=== PATIENT | male | born 1960 | race Two or more races ===

== ENCOUNTER 2018-04-20 09:30 | Outpatient (AMBR) | payer MEDICAID, SELFPAY ==
--- NOTE | 2018-04-03 09:40 | PT.OIERPT ---
PT OP Initial Eval Patient Information Pediatric or Adult Patient: Adult PT >13 Visit Reasons: Cerebrovascular accident Medical Diagnosis: ICD 10 Cerebral infarction Treatment Dx #1: Muscle weakness Treatment Dx #2: unsteady gait Initial Assessment Subjective 57 y/o male who was hospitalized on 01/2018 due to initial complain of shakiness and anxiety. MRI was done and the results are No brainstem infarct is confirmed. No acute infarct. No significant chronic microvascular white matter change. No abnormal enhancing cerebellar or cerebral lesion. Mild intracranial arterial irregularity, no vascular occlusion or cerebral aneurysm No significant carotid stenosis. Dr. Hill was consulted and as per Dr. Hill that he will need further work up for his LLE pain and low back pain. 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 Patient currently is on Sinemet for his Parkinson Dse. Patient at the time of PT evaluation complains of low back pain. He mentioned that he cannot walk normal now and that he needs to walk slow or else he fall, and that his balance is not good. Patient Does have a cane but he doesn't use it. 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 Objective Patient BLE ms strength =4/5 grossly graded BUE ms strength 4/5 grossly graded TUG test 15.86 secs Tinetti balance 16, gait 12/30 total score = 20/28 = moderate risk for falls gait assessment = Decrease theron. Decrease hip flexion and knee flexion with decrease toe clearance. Decrease weight shifting. Standing dynamic balance = fair No visible resting tremor at the time of evaluation Patient has pain on the RLE PS5/10 at the time of evaluation at worst it is PS 8/10 Assessment Patient will need PT for strengthening ex on BUE and BLE, balance ex to decrease risk of falls, Gait training with and without AD, ambulation on even and uneven surfaces. And to be I with HEP to be able to maintain the level of function upon dc. Patient were educated about his low back and that as per MD that he will need further test for his low back pain with radiculopathy and that after this therapy session he could request a referral for his back problem. Patient verbalized understanding. Short Term and Hem Marker Goals 1. Increase ms strength on BUE/BLE to 5/5 to facilitate transfers and amb 2. To increase balance to good to decrease risk of falls and increase TUG score to 12secs 3. To eliminate gait deviations to promote increase toe clearance to decrease risk of falls. 4. To be I with HEP Treatment Plan Thera ex [facility]-ed Gait training Frequency and Duration 2x/wk x 6 weeks Certification Dates: 04/03/18 to 07/02/2018 CVA/TIA Most Recent Cardiac Tests: No Data to Display
--- NOTE | 2018-04-03 10:09 | PTNOTE_ITS ---
PT OP Initial Eval Patient Information Pediatric or Adult Patient: Adult PT >13 Visit Reasons: Cerebrovascular accident Medical Diagnosis: ICD 10 Cerebral infarction Treatment Dx #1: Muscle weakness Treatment Dx #2: unsteady gait Initial Assessment Subjective 57 y/o male who was hospitalized on 01/2018 due to initial complain of shakiness and anxiety. MRI was done and the results are No brainstem infarct is confirmed. No acute infarct. No significant chronic microvascular white matter change. No abnormal enhancing cerebellar or cerebral lesion. Mild intracranial arterial irregularity, no vascular occlusion or cerebral aneurysm No significant carotid stenosis. Dr. Hill was consulted and as per Dr. Hill that he will need further work up for his LLE pain and low back pain. 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 Patient currently is on Sinemet for his Parkinson Dse. Patient at the time of PT evaluation complains of low back pain. He mentioned that he cannot walk normal now and that he needs to walk slow or else he fall, and that his balance is not good. Patient Does have a cane but he doesn't use it. 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 Objective Patient BLE ms strength =4/5 grossly graded BUE ms strength 4/5 grossly graded TUG test 15.86 secs Tinetti balance 16, gait 12/30 total score = 20/28 = moderate risk for falls gait assessment = Decrease theron. Decrease hip flexion and knee flexion with decrease toe clearance. Decrease weight shifting. Standing dynamic balance = fair No visible resting tremor at the time of evaluation Patient has pain on the RLE PS5/10 at the time of evaluation at worst it is PS 8 /10 Assessment Patient will need PT for strengthening ex on BUE and BLE, balance ex to decrease risk of falls, Gait training with and without AD, ambulation on even and uneven surfaces. And to be I with HEP to be able to maintain the level of function upon dc. Patient were educated about his low back and that as per MD that he will need further test for his low back pain with radiculopathy and that after this therapy session he could request a referral for his back problem. Patient verbalized understanding. Short Term and Flight Reservations Manager Goals 1. Increase ms strength on BUE/BLE to 5/5 to facilitate transfers and amb 2. To increase balance to good to decrease risk of falls and increase TUG score to 12secs 3. To eliminate gait deviations to promote increase toe clearance to decrease risk of falls. 4. To be I with HEP Treatment Plan Thera ex [facility]-ed Gait training Frequency and Duration 2x/wk x 6 weeks Certification Dates: 04/03/18 to 07/02/2018 CVA/TIA Most Recent Cardiac Tests: 2 No Data to Display
--- NOTE | 2018-04-10 09:11 | PTNOTE_ITS ---
PT Outpatient Daily Note Date of Service: April 10, 2018 OP Daily Note Pediatric or Adult Patient: Adult PT >13 Visit Reasons: Cerebrovascular accident Outpatient Physical Therapy Treatment Date: 04/10/18 Subjective: Patient c/o slight pain in low back at the start of therapy. Objective: Please see FS Assessment: Patient was able to tolerate therapy well today. Patient was able tolerate balance exercises with balance pad with minimal LOB. Patient was unable to tolerate two pound ankle weight with hip flexion due to incorrect posture due to patient was leaning back. Exercise was modified and patient was able to maintain proper body mechanics. During balance exercises patient was given verbal and tactile cues to have more of an upright posture. Patient was able to correct body mechanics when given cues. Patient tolerated scifit without breaks and no SOB. Patient c/o 5/10 pain on his lower back at the end of therapy. Patient does not have the result of xray from his back today. Will follow up on the next visit. Plan: Continue POC towards goals. Pain Present Currently: Yes Length of Time (minutes) of Treatment: 30 Minutes Office Procedures PT Procedures PT Date of Service: 04/03/18 OP PT Eval Mod Complex 30 minutes: Yes CVA/TIA Most Recent Cardiac Tests: 2 No Data to Display
--- NOTE | 2018-04-13 09:22 | PTNOTE_ITS ---
PT Outpatient Daily Note Date of Service: April 13, 2018 OP Daily Note Visit Reasons: Cerebrovascular accident Outpatient Physical Therapy Treatment Date: 04/13/18 Subjective: No new complaints today. Objective: Please see FS Assessment: Initially pt was given two pounds ankle weights for stair training and exercises was too easy. Therapist increased ankle weights and pt was able to tolerate well with no LOB or SOB. During treadmill training pt was initially started on .5 speed and needed max verbal cues to have a larger step length and increased toe clearance. Once pt was able to tolerate proper body mechanics speed and incline was increased. Pt. was unable to maintain single leg stance. He needed to put foot down to regain balance. Pt was encourage that it was okay to put foot down to regain balance and that we will work on increasing time spent during single leg stance exercises. Pt was able to tolerate exercises with no rest breaks and no SOB. Plan: Continue POC towards goals Pain Present Currently: No Length of Time (minutes) of Treatment: 30 Minutes Office Procedures PT Procedures PT Date of Service: 04/10/18 Therapeutic Exercise 30 minutes: Yes PT Procedures PT Date of Service: 04/03/18 OP PT Eval Mod Complex 30 minutes: Yes CVA/TIA Most Recent Cardiac Tests: 2 No Data to Display
--- NOTE | 2018-04-20 11:14 | PTNOTE_ITS ---
PT Outpatient Daily Note Date of Service: April 20, 2018 OP Daily Note Visit Reasons: Cerebrovascular accident Outpatient Physical Therapy Treatment Date: 04/20/18 Subjective: pt doing well today with no complaints from last visit but states he still has the usual back pain. pt mentions compliance with HEP. Objective: see flow sheet. Assessment: pt tolerated the 3# ankle weight with most standing exercises with no c/o increase pain not compensations. pt did not want to take rest breaks as he was feeling well. increases the speed while pt on the TM and he did well. cued him to stay close to the hand rails as he was too far back. pt maintained good posture with all ther ex. observed no arm swing with ambulation. Plan: continue POC per PT. Length of Time (minutes) of Treatment: 30 Minutes Office Procedures PT Procedures PT Date of Service: 04/10/18 Therapeutic Exercise 30 minutes: Yes PT Procedures PT Date of Service: 04/13/18 Therapeutic Exercise 30 minutes: Yes PT Procedures PT Date of Service: 04/03/18 OP PT Eval Mod Complex 30 minutes: Yes PT Procedures PT Date of Service: 04/20/18 Therapeutic Exercise 30 minutes: Yes CVA/TIA Most Recent Cardiac Tests: 2 No Data to Display
== END 2018-04-20 23:59 | disposition home or self-care (01) ==
PROVIDERS: PCP Family Medicine; Referring Provider Family Medicine; Visit Provider Registered Nurse Community Health
DX: I69.359 Hemiplegia and hemiparesis following cerebral infarction affecting unspecified side (principal); M62.81 Muscle weakness (generalized); R26.81 Unsteadiness on feet; M54.5 Low back pain; I10 Essential (primary) hypertension
CPT/HCPCS: 97110; 97162

== ENCOUNTER 2018-05-04 08:30 | Outpatient (AMBR) | payer MEDICAID, SELFPAY ==
--- NOTE | 2018-04-27 09:36 | PT.ODAYNRPT ---
PT Outpatient Daily Note Date of Service: April 27, 2018 OP Daily Note Visit Reasons: cva Outpatient Physical Therapy Treatment Date: 04/27/18 Subjective: pt doing well today as he feels his strength improved. Objective: see flow sheet. Assessment: increased the ankle weights from 3# to 4# for most ther ex in which pt did not c/o increased pain. added foam pad to challenge his balance and he did good but he did use the rails for safety. did not see any instability nor LOB. pt has good endurance as he does not fatigue nor rest in between reps. increased speed on the TM and he was still able to keep up and maintain good balance. Plan: continue POC per PT. Length of Time (minutes) of Treatment: 30 Minutes Office Procedures PT Procedures PT Date of Service: 04/27/18 Therapeutic Exercise 30 minutes: Yes
--- NOTE | 2018-05-01 12:07 | PT.ODAYNRPT ---
PT Outpatient Daily Note Date of Service: May 01, 2018 OP Daily Note Visit Reasons: cva Outpatient Physical Therapy Treatment Date: 05/01/18 Subjective: pt states he works out at home as well using 5# ankle weights so he does not c/o of the ther ex here in PT. Objective: see flow sheet. Assessment: pt can do all ther ex well but does have a slower theron than normal. pt is also aware of his theron. during HS curls pt tends to flex the hips as well so demonstrated the correct way and pt was easily able to correct. pt concentrates well on ther ex to be able to perform correctly. pt does not c/o any issues during and after ther ex. Plan: continue POC per PT. Length of Time (minutes) of Treatment: 30 Minutes Office Procedures PT Procedures PT Date of Service: 04/27/18 Therapeutic Exercise 30 minutes: Yes PT Procedures PT Date of Service: 05/01/18 Therapeutic Exercise 30 minutes: Yes
--- NOTE | 2018-05-01 12:53 | PTNOTE_ITS ---
PT Outpatient Daily Note Date of Service: May 01, 2018 OP Daily Note Visit Reasons: cva Outpatient Physical Therapy Treatment Date: 05/01/18 Subjective: pt states he works out at home as well using 5# ankle weights so he does not c/o of the ther ex here in PT. Objective: see flow sheet. Assessment: pt can do all ther ex well but does have a slower theron than normal. pt is also aware of his theron. during HS curls pt tends to flex the hips as well so demonstrated the correct way and pt was easily able to correct. pt concentrates well on ther ex to be able to perform correctly. pt does not c/ o any issues during and after ther ex. Plan: continue POC per PT. Length of Time (minutes) of Treatment: 30 Minutes Office Procedures PT Procedures PT Date of Service: 04/27/18 Therapeutic Exercise 30 minutes: Yes PT Procedures PT Date of Service: 05/01/18 Therapeutic Exercise 30 minutes: Yes
--- NOTE | 2018-05-04 08:58 | PT.ODS1RPT ---
PT OP Progress/Discharge Note Date of Service: May 04, 2018 Progress Note/DC Note Progress Note/Discharge Note: DC Note Patient Information Pediatric or Adult Patient: Adult PT >13 Visit Reasons: cva Medical Diagnosis: Cerebral infarction Service Continue Service or Discharge: Discharge Physical Therapy Outpatient Service Dates: From: / To:: 04/03/2018 to 05/04/2018 Discharge Date: 05/04/18 Plan Treatment Plan: Status Subjective: Patient states he is feeling better. As of now there are no limitations on his physical activity and ADL's. Objective: Ms strength on BLE 5/5 gait assessement - Patient demonstrates good toe clearance with theron. No LOB during gait training. Standing dynamic = Good No complain of pain Assessment: Patient will be dc from PT services secondary to patient reached goals. Patient States there are no limitations as of this time. He was able to do chores at home and ADL's. Patient was seen for eval and 6 tx sessions. He has no complains of pain vs the initial evaluation. He had good standing balance and no visible tremors during therapy session. Plan: Patient Will be dc from PT services. Treatment Provided This POC: Thera ex Goals Achieved: Ms strength 5/5 Standing balance to good Improve gait with decrease gait deviations. Discharge Comment: dc from PT services secondary to goals achieved. Office Procedures PT Procedures PT Date of Service: 04/27/18 Therapeutic Exercise 30 minutes: Yes PT Procedures PT Date of Service: 05/01/18 Therapeutic Exercise 30 minutes: Yes
== END 2018-05-18 23:59 | disposition home or self-care (01) ==
PROVIDERS: PCP Family Medicine; Referring Provider Family Medicine; Visit Provider Registered Nurse Community Health
DX: I69.354 Hemiplegia and hemiparesis following cerebral infarction affecting left non-dominant side (principal); R26.81 Unsteadiness on feet; I10 Essential (primary) hypertension
CPT/HCPCS: 97110

== ENCOUNTER → 2024-04-12 | Outpatient (CLI) | payer OTHER, MEDICAID, SELFPAY ==
[2024-04-12 10:40] LABS: Basophils % (Auto) 0 % (0-2.5); Eosinophils # (Auto) 0.2 Thou/mm3 (0.0-0.5); Eosinophils % (Auto) 4 % (0-10); Hematocrit 46.7 % (41.0-53.0); Hemoglobin 15.7 g/dL (13.5-16.0); Immature Granulocytes % (Auto) 0 % (0-0); Immature Granulocytes Auto 0.02 Thou/mm3 (0.00-0.00); Lymphocytes # (Auto) 1.9 Thou/mm3 (1.0-4.8); Lymphocytes % (Auto) 38 % (10-50); Mean Corpuscular HGB Conc 33.6 g/dl (31.0-37.0); Mean Corpuscular Hemoglobin 28.4 pg (25.0-35.0); Mean Corpuscular Volume 85 fL (80-100); Monocytes # (Auto) 0.3 Thou/mm3 (0.0-0.8); Monocytes % (Auto) 7 % (0-12); Neutrophils # (Auto) 2.6 Thou/mm3 (1.8-7.7); Neutrophils % (Auto) 51 % (37-80); Nucleated Red Blood Cell % 0 /100 WBC (0); Platelet Count 218 Thou/mm3 (140-440); RDW Standard Deviation 40.1 fL (35.1-43.9); Red Blood Count 5.52 Miln/mm3 (4.50-5.90); White Blood Count 5.1 Thou/mm3 (3.8-10.6)
[2024-04-12 10:45] LABS: Glucose Estimated Average 114 mg/dL (80-131); Hemoglobin A1C 5.6 % Hgb (4.8-6.0)
[2024-04-12 10:47] LABS: Alanine Aminotransferase 12 U/L (10-49); Albumin, Serum 4.8 gm/dL (3.4-4.8); Albumin/Globulin Ratio 1.9 (1.2-2.2); Anion Gap 10 (7-16); Aspartate Amino Transferase 14 U/L (0-34); BUN/Creatinine Ratio 16 Ratio (12-20); Bilirubin,Total 0.6 mg/dL (0.3-1.2); Blood Urea Nitrogen 16 mg/dL (9-23); Calcium 9.7 mg/dL (8.3-10.6); Calcium (Corrected) 9.7 mg/dL (8.5-10.1); Carbon Dioxide 27.1 mMol/L (20.0-31.0); Chloride 104 mMol/L (98-107); Cholesterol 171 mg/dL (132-200); Globulin 2.5 gm/dL (2.3-3.5); Glucose 99 mg/dL (74-106); HDL Cholesterol 45 mg/dL (40-60); Osmolality,Calculated 282 (275-295); Potassium 4.3 mMol/L (3.4-5.1); Sodium 141 mMol/L (136-145); Total Protein 7.3 gm/dL (5.7-8.2); Triglycerides 170 mg/dL (30-150); eGFR > 60 See Note
[2024-04-12 10:48] LABS: Alkaline Phosphatase 63 U/L (46-116); Cardiac Risk Estimate 3.8 RATIO (4.0-6.7); LDL Cholesterol,Calculated 92 mg/dL (0-130)
== END | disposition home or self-care (01) ==
PROVIDERS: PCP Registered Nurse Community Health; Referring Provider Registered Nurse Community Health; Visit Provider Registered Nurse Community Health
DX: I10 Essential (primary) hypertension (principal); E78.2 Mixed hyperlipidemia; R73.03 Prediabetes
CPT/HCPCS: 36415; 80053; 80061; 83036; 85025

== ENCOUNTER 2024-07-02 08:47 | Emergency (ER) | payer OTHER, MEDICAID, SELFPAY ==
[2024-07-02 08:59] VITALS: BP 120/76; PULSE 89; RESP 19; TEMP 36.7; O2SAT 96; BMI 30.6
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
[2024-07-02] MEDS: KETOROLAC INJ 60 MG/2 ML VIAL 30 MG IM (09:22)
== END 2024-07-02 09:45 | disposition home or self-care (01) ==
PROVIDERS: Emergency Provider Emergency Medicine; PCP Registered Nurse Community Health
DX: M54.41 Lumbago with sciatica, right side (principal)
CPT/HCPCS: 96372; 99283; J1885

== ENCOUNTER → 2024-08-15 | Outpatient (CLI) | payer OTHER, MEDICAID, SELFPAY ==
[2024-08-15 10:31] LABS: Basophils % (Auto) 1 % (0-2.5); Eosinophils # (Auto) 0.1 Thou/mm3 (0.0-0.5); Eosinophils % (Auto) 2 % (0-10); Hematocrit 45.7 % (41.0-53.0); Hemoglobin 15.2 g/dL (13.5-16.0); Immature Granulocytes % (Auto) 0 % (0-0); Immature Granulocytes Auto 0.02 Thou/mm3 (0.00-0.00); Lymphocytes # (Auto) 1.7 Thou/mm3 (1.0-4.8); Lymphocytes % (Auto) 32 % (10-50); Mean Corpuscular HGB Conc 33.3 g/dl (31.0-37.0); Mean Corpuscular Volume 87 fL (80-100); Monocytes # (Auto) 0.4 Thou/mm3 (0.0-0.8); Monocytes % (Auto) 7 % (0-12); Neutrophils % (Auto) 58 % (37-80); Nucleated Red Blood Cell % 0 /100 WBC (0); Platelet Count 171 Thou/mm3 (140-440); RDW Standard Deviation 40.6 fL (35.1-43.9); Red Blood Count 5.25 Miln/mm3 (4.50-5.90); White Blood Count 5.3 Thou/mm3 (3.8-10.6)
[2024-08-15 10:33] LABS: Glucose Estimated Average 105 mg/dL (80-131); Hemoglobin A1C 5.3 % Hgb (4.8-6.0)
[2024-08-15 10:47] LABS: Prostate Specific Antigen 0.87 ng/mL (0-4.00)
[2024-08-15 11:08] LABS: Alanine Aminotransferase < 7 U/L (10-49); Albumin, Serum 4.5 gm/dL (3.4-4.8); Albumin/Globulin Ratio 1.8 (1.2-2.2); Alkaline Phosphatase 68 U/L (46-116); Anion Gap 12 (7-16); Aspartate Amino Transferase 16 U/L (0-34); BUN/Creatinine Ratio 16 Ratio (12-20); Bilirubin,Total 0.7 mg/dL (0.3-1.2); Blood Urea Nitrogen 16 mg/dL (9-23); Calcium 9.1 mg/dL (8.3-10.6); Calcium (Corrected) 9.1 mg/dL (8.5-10.1); Carbon Dioxide 26.5 mMol/L (20.0-31.0); Cardiac Risk Estimate 3.8 RATIO (4.0-6.7); Chloride 104 mMol/L (98-107); Cholesterol 167 mg/dL (132-200); Globulin 2.5 gm/dL (2.3-3.5); Glucose 95 mg/dL (74-106); HDL Cholesterol 44 mg/dL (40-60); LDL Cholesterol,Calculated 105 mg/dL (0-130); Osmolality,Calculated 284 (275-295); Potassium 4.1 mMol/L (3.4-5.1); Sodium 142 mMol/L (136-145); Triglycerides 92 mg/dL (30-150); eGFR > 60 See Note
== END | disposition home or self-care (01) ==
LOC: COPL 09:48
PROVIDERS: PCP Registered Nurse Community Health; Referring Provider Registered Nurse Community Health; Visit Provider Registered Nurse Community Health
DX: R73.03 Prediabetes (principal); E78.2 Mixed hyperlipidemia; I10 Essential (primary) hypertension; Z12.5 Encounter for screening for malignant neoplasm of prostate; Z79.899 Other long term (current) drug therapy
CPT/HCPCS: 36415; 80053; 80061; 83036; 84153; 85025

== ENCOUNTER → 2024-12-12 | Outpatient (CLI) | payer OTHER, MEDICAID, SELFPAY ==
[2024-12-12 10:55] LABS: Basophils # (Auto) 0.0 Thou/mm3 (0.0-0.2); Basophils % (Auto) 0 % (0-2.5); Eosinophils # (Auto) 0.1 Thou/mm3 (0.0-0.5); Eosinophils % (Auto) 3 % (0-10); Hematocrit 46.0 % (41.0-53.0); Hemoglobin 15.4 g/dL (13.5-16.0); Immature Granulocytes Auto 0.00 Thou/mm3 (0.00-0.00); Lymphocytes # (Auto) 1.5 Thou/mm3 (1.0-4.8); Lymphocytes % (Auto) 31 % (10-50); Mean Corpuscular HGB Conc 33.5 g/dl (31.0-37.0); Mean Corpuscular Hemoglobin 28.5 pg (25.0-35.0); Mean Corpuscular Volume 85 fL (80-100); Monocytes # (Auto) 0.4 Thou/mm3 (0.0-0.8); Monocytes % (Auto) 8 % (0-12); Neutrophils # (Auto) 2.8 Thou/mm3 (1.8-7.7); Neutrophils % (Auto) 58 % (37-80); Nucleated Red Blood Cell # 0.00 Thou/mm3 (0.00-0.00); Nucleated Red Blood Cell % 0 /100 WBC (0); Platelet Count 166 Thou/mm3 (140-440); RDW Standard Deviation 40.8 fL (35.1-43.9); Red Blood Count 5.41 Miln/mm3 (4.50-5.90); White Blood Count 4.7 Thou/mm3 (3.8-10.6)
[2024-12-12 11:15] LABS: Alanine Aminotransferase 13 U/L (10-49); Albumin, Serum 4.5 gm/dL (3.4-4.8); Albumin/Globulin Ratio 1.8 (1.2-2.2); Alkaline Phosphatase 60 U/L (46-116); Anion Gap 8 (7-16); Aspartate Amino Transferase 15 U/L (0-34); BUN/Creatinine Ratio 12 Ratio (12-20); Bilirubin,Total 0.5 mg/dL (0.3-1.2); Blood Urea Nitrogen 12 mg/dL (9-23); Calcium 9.8 mg/dL (8.3-10.6); Calcium (Corrected) 9.8 mg/dL (8.5-10.1); Carbon Dioxide 25.6 mMol/L (20.0-31.0); Cardiac Risk Estimate 3.5 RATIO (4.0-6.7); Chloride 108 mMol/L (98-107); Cholesterol 154 mg/dL (132-200); Creatinine (Component) 1.0 mg/dL (0.6-1.3); Globulin 2.5 gm/dL (2.3-3.5); Glucose 99 mg/dL (74-106); HDL Cholesterol 44 mg/dL (40-60); LDL Cholesterol,Calculated 77 mg/dL (0-130); Osmolality,Calculated 282 (275-295); Potassium 4.0 mMol/L (3.4-5.1); Sodium 142 mMol/L (136-145); Total Protein 7.0 gm/dL (5.7-8.2); Triglycerides 163 mg/dL (30-150); eGFR > 60 See Note
[2024-12-12 11:19] LABS: Glucose Estimated Average 108 mg/dL (80-131); Hemoglobin A1C 5.4 % Hgb (4.8-6.0)
== END | disposition home or self-care (01) ==
LOC: COPL 09:23
PROVIDERS: PCP Registered Nurse Community Health; Referring Provider Registered Nurse Community Health; Visit Provider Registered Nurse Community Health
DX: E78.2 Mixed hyperlipidemia (principal); R73.03 Prediabetes
CPT/HCPCS: 36415; 80053; 80061; 83036; 85025